=== PATIENT | male | born 1985 | race Caucasian/White ===

== ENCOUNTER 2020-10-06 16:08 | Outpatient (CLI) | payer OTHER ==
[2020-10-06 17:31] VITALS: BP 137/96
--- NOTE | 2020-10-06 17:31 | SLEEP CARE CONSULTATION ---
Information from patient questionnaire entered by Ritu Carbajal. I have reviewed and concur with the information entered by Ritu Carbajal. This document represents the service I personally performed and the decisions made by me, Farrah Choi ARNP. History of Present Illness Service Date and Time: 10/06/2020 1608 Reason for Visit: New patient Chief Complaint: reports: Insomnia, Unrefreshed sleep, Snoring (possibly), Excessive daytime sleepiness, Fatigue, Frequent awakenings at night Date of Onset: 15 years Usual bedtime: 9 - 11:30 pm, sometimes 7 am Time it takes to fall asleep: 1 hour Snores at night: No Observed to quit breathing while asleep: No Sleeps alone due to snoring: No Number of times waking at night: 4-5 or more Reasons for waking at night: reports: Snoring, Pain, Other (noise, unknown reason). denies: Choking, Gasping for air Toss, Turn, or Twitch while sleeping: Yes Recalls having dreams: No Usually gets out of bed at: 5-6 am or 7-9 am or 12-3 pm; shift work regular Feels refreshed in the morning: No Morning headache: Yes (resolves sometimes after shower, or never) Sleepy or fatigued during the day: Yes Ever fallen asleep while driving: Yes (no accidents) Takes day naps: No Dreams during day naps: No Prior sleep studies: No Additional HPI information: I had the pleasure of seeing HEIDI BARRON today regarding the possibility of him having a sleep disorder. His current complaints are excessive daytime sleepiness, fatigue, frequent awakenings at night, insomnia and unrefreshed sleep. He has been in the [employer] for 20 years. 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 He states he is always tired. His and others have encouraged him to get tested. At this point he feels his daytime fatigue is affecting his home life. He is tired and cranky and his wants him to seek evaluation to determine why. He is about to retire from [employer] in the next couple years. He is tired of being fatigued and having almost daily headaches. He wakes up with headaches about 5 days a week. He can feel it coming on at 3 AM. He takes Excedrin when needed. He drinks about a gallon of water every day. He talks a lot in his sleep about work and he thinks he is stressed in his dreams. His has not told him he snores but he has caught himself having snorting intakes of breath when falling asleep. His has not told him he has any p auses in breathing. 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 He does have a grandmother who has sleep apnea and was treated but she has . - Parasomnia Symptoms Ever been unable to move upon waking from sleep: Yes (occasional) Walks in sleep: No Talks in sleep: Yes Ever acted out dreams in sleep: Yes Ever felt weak in the knees when startled or emotional: Yes Bothered by creepy, crawly, restless sensations in legs: Yes (all throughout the day, random) Problems with memory or concentration: Yes Subjective Initial [place] Sleepiness Scale score: 13 (in 2020) Past Medical History Past Medical History: reports: Dysphagia, Anxiety (no treatment at this time, seeking evaluation at this time), GERD, Attention deficit (ADD) Social History 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 Patient is and lives in [place]. Have you smoked in the past 12 months: No Alcohol use: Yes Alcohol amount and frequency: 1-2 drinks 1 time a month Caffeine use: Yes Caffeine amount and frequency: 1 drink 1-3 times a week Family History Family history of sleep disordered breathing: Yes Family Hx Sleep Apnea: Grandparent: Sleep apnea - Treated Allergies and Home Medications Drug allergies reviewed: Yes (NKDA) Home medication list reviewed: Yes (Excedrin, Omeprazole 40 mg, Naproxen prn, Ibuprofen prn) Review of Systems Weight gain over past 5 years: 10 Weight loss over past 5 years: 10 Respiratory: reports: shortness of breath Gastrointestinal: reports: heartburn, difficulty swallowing Neurological: reports: headaches, gait or balance problems Psychiatric: reports: Attention Deficit Hyperactivity, anxiety, depression, mood disorder Ear/Nose/Throat: reports: nasal congestion, sinus problems, dry mouth/throat, hoarseness, injury to nose, wisdom teeth removed Endocrine: reports: sluggishness, too hot or cold, excessive thirst, increased appetite, unexplained weakness Musculoskeletal: reports: joint pain, back pain, joint swelling, muscle pain or cramping, mobility problems Physical Exam Blood Pressure: 137/96 Cuff size: wrist Heart Rate: 71 O2 Saturation: 98 Height: 5 ft 11 in Weight: 203 lb Body Mass Index: 28.3 BMI Classification: Overweight Neck circumference: 17.75 (inches) Mouth and throat: narrow oropharynx Soft palate: long Hard palate: normal Uvula visualization: 25% Mallampati Class III Tongue: normal in size Tonsils: small Chin and jaw: Micrognathia Heart: regular rate and rhythm Lungs: clear bilaterally Impression and Plan 1. Suspected Obstructive Sleep Apnea-Hypopnea Syndrome, as suggested by a history of possible snoring, morning headaches, frequent awakenings during the night, unrefreshed sleep, cognitive impairment, and excessive daytime sleepiness. Narrow oropharynx and obesity are common predisposing factors for obstructive sleep apnea-hypopnea syndrome. I recommend proceeding to polysomnography to confirm the diagnosis and to assess severity. If the patient has significant sleep disordered breathing, a manual CPAP titration study will also be performed to find the optimal treatment pressure. I informed the patient of what the sleep studies involve and after some discussion, obtained agreement to proceed. The pathophysiology of obstructive sleep apnea-hypopnea syndrome was discussed with the patient and health risks of cardiovascular and cerebrovascular disease if not treated. AAS brochure for obstructive sleep apnea-hypopnea syndrome given and reviewed. Risks of drowsy driving discussed in detail and patient advised to avoid long distance driving and to car clerk pullman at the first sign of drowsiness. Patient agreed to plan. * Schedule polysomnography +- manual CPAP titration study and return in 1-2 weeks after the study to discuss result and initiate therapy. * Avoid long distance driving or driving when feeling sleepy. * Avoid alcohol, sedative and muscle relaxant around bedtime. * Attempt to lose weight. * Review instructions provided by trained office staff on how to prepare for the sleep study. * Return for follow-up after sleep study completed. Counseling Topics: Weight loss health impact Visit Type: In Office Time Spent with Patient (minutes): 37 Provider Statement: I spent 100% of the Face to Face Visit with the patient with greater than 50% spent counseling the patient and coordination of care.
== END 2020-10-06 16:09 | disposition home or self-care (01) ==
LOC: SC 16:08
PROVIDERS: ATTEND Nurse Practitioner Family
DX: R06.83 Snoring (principal); R51.9 Headache, unspecified; G47.8 Other sleep disorders; R41.9 Unspecified symptoms and signs involving cognitive functions and awareness; G47.10 Hypersomnia, unspecified; E66.3 Overweight; Z68.28 Body mass index [BMI] 28.0-28.9, adult
CPT/HCPCS: 99203; 99212

== ENCOUNTER 2020-10-12 14:43 | Outpatient (CLI) | payer OTHER | END 2020-10-12 14:44 | disposition home or self-care (01) | LOC: SC 14:43 | PROVIDERS: ATTEND Nurse Practitioner Family | DX: G47.33 Obstructive sleep apnea (adult) (pediatric) (principal); R09.02 Hypoxemia; E66.3 Overweight; Z68.28 Body mass index [BMI] 28.0-28.9, adult | CPT/HCPCS: 95806 ==

== ENCOUNTER 2020-10-26 09:45 | Outpatient (CLI) | payer OTHER ==
--- NOTE | 2020-10-26 10:16 | SLEEP CARE CONSULTATION ---
Information from patient questionnaire entered by Mike Celestin. I have reviewed and concur with the information entered by Mike Celestin. This document represents the service I personally performed and the decisions made by me, Farrah Choi ARNP. History of Present Illness Service Date and Time: 10/26/2020 0945 Initial [place] Sleepiness Scale score: 13 (in 2020) Current [place] Sleepiness Scale score: 13 Additional HPI information: HEIDI BARRON returns for follow up and results of the recently performed home sleep study. I explained the pathophysiology behind obstructive sleep apnea. We then spent quite a bit of time discussing different treatment options. For mild obstructive sleep apnea, surgery and oral appliance are alternatives to nasal CPAP therapy but in moderate or severe cases, nasal CPAP is the most effective and reliable treatment. Because apnea is primarily in supine position, then positional management therapy could be effective. Methods discussed such as positioning with pillows, using a T-shirt with tennis balls in the back, and shown commercial products that have a pillow format on back to prevent supine sleep. I reviewed the impact of weight changes on sleep apnea and strongly recommended losing weight. After some discussion, the patient opted to go with the nasal CPAP therapy. Nasal autoCPAP set at 4-15 cmH20 will be ordered with rationale explained. A manual titration study will be ordered if unable to find optimal pressure with office adjustments. I explained how CPAP machine works with sample devices [employer] Dreamstation and [employer] [id number] and what to expect when using the machine. Using CPAP every night in order to get used to it was emphasized. Patient advised to put CPAP mask on before getting into bed so as not to fall asleep without CPAP. To assist acclimation to CPAP use, it could also be used for a short time during day while reading or watching TV. The patient was instructed to call the CPAP supplier to discuss any mechanical problem that may occur. If the mask given is uncomfortable or is difficult to keep on through the night even with adjustment, contact the CPAP supplier as many will replace with another mask style if notified before 30 days. If snoring or perceives is not getting enough air or too much air from the machine, notify this office. [facility] patient education PAP tips and Non Pap treatment pamphlets reviewed and given to patient. Patient was cautioned about risks of drowsy driving until sleepiness symptoms resolve. Sleep Study - Results Type of Sleep Study: Home sleep study Prior sleep studies: No Polysomnography/Home Sleep Study results: Physician Impression: The quality of the study is good. The length of the study is adequate (> 240 minutes). Please also see the tabulated and graphic data. 1. Obstructive Sleep Apnea-Hypopnea (ICD-10 G47.33), mild, with an AHI of 10.0 /hr and chad SaO2 of 86%. During the study, the patient had 49 apneas (49 obstructive, 0 central, 0 mixed) and 30 hypopneas. The longest episode lasted 59.5 seconds. The respiratory events occurred almost exclusively during supine sleep (supine AHI was 17.7 and non-supine, 4.99). 2. Hypoxemia (ICD-10 R09.02), mild, with the lowest oxygen saturation of 86 % and 5.6 minutes with SaO2 under 90%. Baseline oxygen saturation was normal (Average oxygen saturation was 92%). Allergies and Home Medications Home medication list reviewed: Yes (no changes) Review of Systems Review of systems same as previous: Yes (no changes) Physical Exam Heart Rate: 60 O2 Saturation: 98 Height: 5 ft 11 in Weight: 201 lb Body Mass Index: 28.0 BMI Classification: Overweight Impression and Plan 1. Obstructive Sleep Apnea-Hypopnea Syndrome, moderate, with lowest oxygen saturation of 86%. Obviously this is the cause of the patients symptoms of unrefreshed sleep, and excessive daytime sleepiness. Positive pressure therapy could benefit anxiety, gastric reflux and attention deficit. As mentioned above, the patient will be started on nasal autoCPAP therapy with pressure set at 4-15 cmH2O. A manual titration study will be completed if unable to find optimal treatment pressure with office adjustments. Compliance guidelines also reviewed. A copy of compliance guidelines will be given for reference at check out. Because the apnea is more severe supine, I instructed to avoid sleeping supine using pillow positioning until able to start CPAP use. Patient will also need a MWT for his job once he has reached compliance with CPAP use. We will follow up with him one month after obtaining device and then can order the MWT if he is compliant. He voiced understanding. Patient would also like to explore the possibility of an oral appliance. He is not sure he will be able to tolerate the CPAP mask. I will write a prescription and he will contact his insurance about coverage. 2. Hypoxemia, mild, with the lowest oxygen saturation of 86 % and 5.6 minutes with SaO2 under 90%. His baseline oxygen saturation was normal with an average oxygen saturation of 92%. * Nasal auto CPAP therapy, pressure at 4-15 cm H2O. * Prescription and information about an oral device given to patient * Attempt to lose weight. * Avoid alcohol consumption near bedtime. * Avoid supine sleep until using CPAP. * The patient is again cautioned about driving until sleepiness completely resolves. * Return one month after CPAP obtained. I will assess response to therapy and compliance at that time. Counseling Topics: Sleeping position, Weight control Visit Type: In Office Time Spent with Patient (minutes): 29 Provider Statement: I spent 100% of the Face to Face Visit with the patient with greater than 50% spent counseling the patient and coordination of care.
== END 2020-10-26 09:46 | disposition home or self-care (01) ==
LOC: SC 09:45
PROVIDERS: ATTEND Nurse Practitioner Family
DX: G47.33 Obstructive sleep apnea (adult) (pediatric) (principal); R09.02 Hypoxemia
CPT/HCPCS: 99212; 99213

== ENCOUNTER 2020-12-30 09:57 | Outpatient (CLI) | payer OTHER ==
--- NOTE | 2020-12-30 10:47 | SLEEP CARE CONSULTATION ---
Information from patient questionnaire entered by Estefani Lyn. I have reviewed and concur with the information entered by Estefani Lyn. This document represents the service I personally performed and the decisions made by , Farrah Choi ARNP. History of Present Illness Service Date and Time: 12/30/2020 0957 Previous diagnosis: Mild, Obstructive Sleep Apnea-Hypopnea Syndrome AHI: 10.0 Reason for follow up: first compliance Equipment type: CPAP Equipment obtained from: Other ([facility]; got initial supplies) Mask style: Nasal (started with full face, nasal cushion last 2 nights) Backup mask available: Yes (other mask) Last cushion change: 2 days Prior sleep studies: Yes Year and Where: 10/2020 [facility] Type of Sleep Study: Home sleep study HPI additional information: HEIDI BARRON was diagnosed to have mild, AHI 10.0, obstructive sleep apnea- hypopnea syndrome and returned today for CPAP therapy first compliance follow- up. Sleep Study - Results Type of Sleep Study: Home sleep study Prior sleep studies: No CPAP Compliance Data - Data Reviewed with Patient Average duration of nightly device use: 6 hours 2 minutes Compliance rate %: 97 Current pressure setting (cmH2O): 4-15 (median 5.5, avg 7.4, max 8.4) Average residual AHI: 3.9 Subjective Missed days of use due to: reports: family emergency Patient concerns: reports: mask leak noise, dry mouth, nose, throat, other (headache). denies: aerophagia, mask discomfort, air blowing in eyes, condensation in mask/hose, nasal congestion, epistaxis Observed to snore while using device: Yes Current pressure setting perceived as: comfortable On therapy, patient: reports: sleeping better (rare), other (wakes up with less headaches). denies: drowsiness while driving Initial [place] Sleepiness Scale score: 13 (in 2020) Current [place] Sleepiness Scale score: 19 Allergies and Home Medications Home medication list reviewed: Yes (no changes) Review of Systems Review of systems same as previous: Yes (no changes) Physical Exam Heart Rate: 69 O2 Saturation: 97 Height: 5 ft 11 in Weight: 206 lb (with boots/fatigues on) Body Mass Index: 28.7 BMI Classification: Overweight Impression and Plan 1. Obstructive Sleep Apnea-Hypopnea Syndrome, mild, with good treatment compliance and good apnea control. On CPAP therapy, the patient is still struggling to become accustomed to it but he is having less headaches. He started with a full face mask but this was very hard for him to sleep in due to leaking around the mask. He has tried a nasal cushion for the last 2 nights and thinks he is tolerating this better but he is finding his mouth will come open and his mouth is dry. I advised him t to try a chin strap to keep his mouth closed. Mask leaks can be reduced by washing mask daily and changing mask cushions more frequently to improve mask seal and comfort. Additionally, mask leaks predominately from when patient sleeps on their side can be reduced by using a CPAP pillow. A CPAP pillow sample was shown. This and other styes can be purchased online.He saw an ENT who told him he has a partially deviated septum and they are considering surgery. The patients pressure will be changed to autoCPAP 7-9 cmH20 to reflect pressure being used. Patient advised to contact me if pressure change is uncomfortable so that it can be adjusted. Goals for apnea control discussed. Patient's apnea severity and rationale for treatment to reduce apnea, improve sleep quality and reduce cardiovascular and cerebrovascular events was reviewed. I also reviewed the benefit of consistent device use of CPAP for gastric reflux, anxiety and attention deficit. Patient needs a wakefulness test for his job in the [employer]. I will order this and he will be scheduled once we get authorization. * Change auto CPAP pressure to 7-9 cmH2O * MWT * Notify me if snoring with mask or feeling that the pressure is too much or too little * Attempt to lose weight * Call this office if any problems using CPAP * Return for follow up in 1-2 months, or sooner if concerns arise Counseling Topics: Spare mask, Weight loss health impact Visit Type: In Office Time Spent with Patient (minutes): 34 Provider Statement: I spent 100% of the Face to Face Visit with the patient with greater than 50% spent counseling the patient and coordination of care.
== END 2020-12-30 09:58 | disposition home or self-care (01) ==
LOC: SC 09:57
PROVIDERS: ATTEND Nurse Practitioner Family
DX: G47.33 Obstructive sleep apnea (adult) (pediatric) (principal)
CPT/HCPCS: 99212; 99214

== ENCOUNTER 2021-02-09 07:00 | Outpatient (CLI) | payer OTHER | END 2021-02-09 07:01 | disposition home or self-care (01) | LOC: SC 07:00 | PROVIDERS: ATTEND Nurse Practitioner Family | DX: G47.33 Obstructive sleep apnea (adult) (pediatric) (principal) | CPT/HCPCS: 95805 ==

== ENCOUNTER 2021-02-09 08:00 | Outpatient (CLI) | payer OTHER ==
[2021-02-09 12:02] LABS: MUDS CUTOFF CONCENTRATIONS CUTOFF CONC BELOW:
[2021-02-09 13:06] LABS: AMPHETAMINE SCREEN,URINE NEGATIVE (NEGATIVE); BARBITURATE SCREEN,UR NEGATIVE (NEGATIVE); BENZODIAZEPINES SCREEN, URINE NEGATIVE (NEGATIVE); COCAINE SCREEN URINE NEGATIVE (NEGATIVE); METHADONE SCREEN, URINE NEGATIVE (NEGATIVE); METHAMPHETAMINES SCREEN, URINE NEGATIVE (NEGATIVE); OPIATE SCREEN, URINE NEGATIVE (NEGATIVE); OXYCODONE SCREEN, URINE NEGATIVE (NEGATIVE); PROPOXYPHENE SCREEN, URINE NEGATIVE (NEGATIVE); THC CANNABINOID SCREEN, URINE NEGATIVE (NEGATIVE); TRICYCLIC ANTIDEPRESSANT,URINE NEGATIVE (NEGATIVE)
== END 2021-02-09 23:59 | disposition home or self-care (01) ==
LOC: LAB.N 08:00
PROVIDERS: ATTEND Nurse Practitioner Family
DX: R41.82 Altered mental status, unspecified (principal)
CPT/HCPCS: 80306

== ENCOUNTER 2021-02-15 09:34 | Outpatient (CLI) | payer OTHER ==
--- NOTE | 2021-02-15 10:04 | SLEEP CARE CONSULTATION ---
Information from patient questionnaire entered by Vincent Sneed MA. I have reviewed and concur with the information entered by Vincent Sneed MA. This document represents the service I personally performed and the decisions made by , Farrah Choi ARNP. History of Present Illness Service Date and Time: 02/15/2021 0934 Initial [place] Sleepiness Scale score: 13 (in 2020) Current [place] Sleepiness Scale score: 14 (2020) Additional HPI information: HEIDI BARRON returns for follow up of the MWT sleep study performed on 02-09-2021. The patient was informed of the following findings: Normal maintenance of wakefulness test (MWT). This MWT consisted of four sessions spaced at two hour intervals and the patient was not observed to sleep. Patient is also here to check his compliance on his CPAP. He is using a nasal cushion mask. He is averaging 6 hours 13 minutes on the device at pressures 7-9 cmH2O with an average residual AHI of 4.6. His median pressure is at 7.4, average pressure at 8.4 and maximum pressure at 8.8 cmH2O. Sleep Study - Results Type of Sleep Study: Home sleep study Prior sleep studies: No Year and Where: 10/2020 [facility] Polysomnography/Home Sleep Study results: MWT DESCRIPTION: This MWT consisted of four sessions spaced at two hour intervals beginning at 8:32:51 AM. The following was observed: No sleep. Physicians Interpretation: Normal maintenance of wakefulness test (MWT) Conclusion: No evidence of residual excessive daytime sleepiness. Allergies and Home Medications Home medication list reviewed: Yes (no changes) Review of Systems Review of systems same as previous: Yes (no changes) Physical Exam Heart Rate: 73 O2 Saturation: 98 Height: 5 ft 11 in Weight: 210 lb Body Mass Index: 29.2 BMI Classification: Overweight Impression and Plan 1. Obstructive Sleep Apnea-Hypopnea Syndrome, mild, with good treatment compliance and good apnea control. On CPAP therapy, the patient has better sleep quality and is more rested overall. Patient returned for follow up after his MWT. Patient showed a normal maintenance wakefulness test with no evidence of residual excessive daytime sleepiness. The patients pressure will be changed to autoCPAP 7-10 cmH20 for patient comfort. Patient advised to contact me if pressure change is uncomfortable so that it can be adjusted. Goals for apnea control discussed. Patient's apnea severity and rationale for treatment to reduce apnea, improve sleep quality and reduce cardiovascular and cerebrovascular events was reviewed. I also reviewed the benefit of consistent device use of CPAP for gastric reflux, anxiety and ADD. Patient was encouraged to lose weight for their overall health and to reduce apneas. * Change auto CPAP pressure to 7-10 cmH2O * Copy of MWT for patient and will be sent to his [place] PCP * Notify me if snoring with mask or feeling that the pressure is too much or too little * Attempt to lose weight * Call this office if any problems using CPAP * Return for follow up in 3 months, or sooner if concerns arise Counseling Topics: Weight loss health impact Time Spent with Patient (minutes): 17
== END 2021-02-15 09:35 | disposition home or self-care (01) ==
LOC: SC 09:34
PROVIDERS: ATTEND Nurse Practitioner Family
DX: G47.33 Obstructive sleep apnea (adult) (pediatric) (principal)
CPT/HCPCS: 99212

== ENCOUNTER 2021-08-03 09:07 | Outpatient (CLI) | payer OTHER ==
--- NOTE | 2021-08-03 14:07 | XRAY Report ---
PROCEDURE: Hand 3 View RT INDICATIONS: THUMB PAIN, RIGHT TECHNIQUE: 3 views of the hand(s) acquired. COMPARISON: None FINDINGS: Bones: No fractures or dislocations. No suspicious bony lesions. Soft tissues: No suspicious soft tissue calcifications. IMPRESSION: No visualized acute fracture or dislocation. However, occult injury cannot be excluded. Recommend soumya rt interval imaging follow-up in 7-10 days as clinically indicated for additional evaluation. Reviewed by: Qi Ayoub MD on 08/03/2021 2:06 PM PDT Approved by: Qi Ayoub MD on 08/03/2021 2:06 PM PDT Station ID: [id number]
== END 2021-08-03 23:59 | disposition home or self-care (01) ==
LOC: DI.N 09:07
PROVIDERS: ATTEND Registered Nurse
DX: M79.644 Pain in right finger(s) (principal)